=== PATIENT | female | born 1955 | race Two or more races ===

== ENCOUNTER 2022-09-01 13:09 | Emergency (ER) | payer MEDICARE ==
[~2022-09-01] VITALS: Ht 165.1 cm; Wt 81.8 kg
[2022-09-01 13:34] LABS: BASOPHILS # (AUTO) 0.1 X10'3 (0-0.2); BASOPHILS % (AUTO) 0.5 % (0-1); EOSINOPHILS % (AUTO) 0 % (0-6); HEMATOCRIT 43.1 % (35.0-45.0); HEMOGLOBIN 13.8 g/dl (12.0-16.0); LYMPHOCYTES # (AUTO) 1.3 X10'3 (1.1-4.8); LYMPHOCYTES % (AUTO) 8.7 % (21-51); MEAN CORPUSCULAR HEMOGLOBIN 24.6 PG (27.0-31.0); MEAN CORPUSCULAR VOLUME 76.9 FL (78-98); MEAN PLATELET VOLUME 10.7 FL (7.4-10.4); MONOCYTES # (AUTO) 0.7 X10'3 (0-0.9); MONOCYTES % (AUTO) 4.9 % (2-12); NEUTROPHILS # (AUTO) 12.9 X10'3 (1.8-7.7); NEUTROPHILS % (AUTO) 85.9 % (42-75); PLATELET COUNT 285 X10'3 (140-440); RED CELL DISTRIBUTION WIDTH 15.9 % (11.5-14.5); WHITE BLOOD COUNT 15.1 X10'3 (4.5-11.0)
[2022-09-01] MEDS ORDERED: normal saline 1000ml 1,000 ML IV ONE (13:35)
[2022-09-01] MEDS ORDERED: carvedilol 6.25mg tablet PO ONE (13:35)
--- NOTE | 2022-09-01 13:36 | NUR ---
PT WAS IN AFIB RVR WHEN PT FIRST CHECKED IN ,HR IN ROOM IS SINUS TACH IN 110'S AND WENT DOWN TO NSR HR 89 ,DR SANDERSON AT BEDSIDE.REPEATED EKG.
[2022-09-01 13:44] LABS: ALANINE AMINOTRANSFERASE 23 U/L (12-78); ALKALINE PHOSPHATASE 120 IU/L (46-116); ANION GAP 11 (8-16); ASPARTATE AMINO TRANSFERASE 23 U/L (10-37); BILIRUBIN,TOTAL 0.7 MG/DL (0.1-1.0); BLOOD UREA NITROGEN 16 MG/DL (7-18); BUN/CREATININE RATIO 14.2 (6.6-38.0); CALCIUM 9.8 MG/DL (8.5-10.1); CHLORIDE 99 MMOL/L (99-107); CREATININE 1.13 MG/DL (0.40-0.90); GLUCOSE 169 MG/DL (70-104); POTASSIUM 3.4 MMOL/L (3.5-5.1); SODIUM 137 MMOL/L (135-145); TOTAL CARBON DIOXIDE 26.9 MMOL/L (24-32); TOTAL PROTEIN 8.1 G/DL (6.4-8.2); eGFR 48 ML/MIN
[2022-09-01 13:50] LABS: MAGNESIUM 2.2 MG/DL (1.5-2.4)
[2022-09-01] MEDS ORDERED: aspirin 325mg tablet PO ONE (13:55)
[2022-09-01 14:33] LABS: ELLIPTOCYTES 1+; LARGE PLATELETS MODERATE; MICROCYTOSIS 1+; PLATELET ESTIMATE NORMAL
[2022-09-01 14:34] LABS: SCHISTOCYTES FEW
[2022-09-01 17:04] VITALS: BP 140/79
[2022-09-01] MEDS ORDERED: CARV6.253 PO (17:29)
[2022-09-01] MEDS ORDERED: APIX5TAB3 PO (17:29)
[2022-09-01] MEDS ORDERED: apixaban 5mg tablet PO ONE (17:30)
[2022-09-02] MEDS ORDERED: CARV6.253 PO (08:22)
[2022-09-02] MEDS ORDERED: APIX5TAB3 PO (08:22)
== END 2022-09-01 18:24 | disposition home or self-care (01) ==
LOC: ER 13:09
DX: I48.0 Paroxysmal atrial fibrillation (principal); I10 Essential (primary) hypertension; E78.00 Pure hypercholesterolemia, unspecified; Z88.8 Allergy status to other drugs, medicaments and biological substances
CPT/HCPCS: 36415; 71045; 80053; 83735; 83880; 84443; 84484; 85008; 85025; 93005; 99285; J7030

== ENCOUNTER 2023-01-24 07:25 | Emergency (ER) | payer MEDICARE ==
[~2023-01-24] VITALS: Ht 160 cm; Wt 81.8 kg
[~2023-01-24 07:25] MED LIST: APIX5TAB3 PO; CARV6.253 PO
[2023-01-24 07:31] VITALS: BP 219/85
== END 2023-01-24 09:37 | disposition left against medical advice (07) ==
LOC: ER 07:25
DX: H57.11 Ocular pain, right eye (principal); Z53.21 Procedure and treatment not carried out due to patient leaving prior to being seen by health care provider
CPT/HCPCS: 99281